=== PATIENT | male | born 1960 | race Caucasian/White ===

== ENCOUNTER → 2020-04-25 | Outpatient (CLI) | payer OTHER ==
[2020-04-25 10:06] LABS: ALT 59 U/L (4-49); AST 42 U/L (17-59); African American GFR (CKD) >90 (>60 ml/min/1.73 sqM); Albumin 4.5 g/dL (3.5-5.0); Albumin/Globulin Ratio 1.6; Alkaline Phosphatase 73 U/L (38-126); Anion Gap 9 mmol/L; Blood Urea Nitrogen 11 mg/dL (9-20); Calcium 9.5 mg/dL (8.4-10.2); Carbon Dioxide 23 mmol/L (22-30); Chloride 105 mmol/L (98-107); Cholesterol 262 mg/dL (<200); Globulin 2.8 g/dL; Glucose 124 mg/dL (74-99); HDL Cholesterol 51 mg/dL (40-60); LDL Cholesterol,Calculated 188 mg/dL (0-99); Non-African American GFR(CKD) >90 (>60 ml/min/1.73 sqM); Potassium 4.6 mmol/L (3.5-5.1); Sodium 137 mmol/L (137-145); Total Protein 7.3 g/dL (6.3-8.2); Triglycerides 117 mg/dL (<150)
== END | disposition home or self-care (01) ==
LOC: LABMAIN 08:55
PROVIDERS: ATTEND Family Medicine
DX: I10 Essential (primary) hypertension (principal)
CPT/HCPCS: 36415; 80053; 80061; 84443

== ENCOUNTER → 2020-07-22 | Outpatient (CLI) | payer OTHER ==
--- NOTE | 2020-07-22 11:54 | US ---
EXAMINATION TYPE: US abdomen complete DATE OF EXAM: 07/22/2020 COMPARISON: NONE CLINICAL HISTORY: R14.0 Abdominal Bloating. Sister had pancreatic CA, bloating, large body habitus EXAM MEASUREMENTS: Liver Length: 17.6 cm Gallbladder Wall: 0.2 cm CBD: 0.5 cm Spleen: 11.3 cm Right Kidney: 12.3 x 5.4 x 6.0 cm Left Kidney: 11.1 x 5.1 x 7.2 cm Pancreas: mostly obscured by bowel gas Liver: Mild diffuse fatty infiltration of the liver. No discrete hepatic mass or intrahepatic biliar y dilatation. Gallbladder: wnl Evidence for sonographic Tipton's sign: no CBD: wnl Spleen: wnl Right Kidney: wnl Left Kidney: wnl Upper IVC: wnl Abd Aorta: Limited visualization due to large body habitus and overlying bowel gas IMPRESSION: 1. The pancreas is mostly obscured by overlying bowel gas. The abdominal aorta is obscured by overlyi ng bowel gas and patient's large body habitus. 2. Mild diffuse fatty infiltration of the liver. 3. No cholelithiasis.
== END | disposition home or self-care (01) ==
LOC: RADUSWWP 07:30
PROVIDERS: ATTEND Family Medicine
DX: K76.0 Fatty (change of) liver, not elsewhere classified (principal); Z80.0 Family history of malignant neoplasm of digestive organs
CPT/HCPCS: 76700

== ENCOUNTER → 2020-09-18 | Day surgery (SDC) | payer OTHER ==
[2020-09-15 12:25] VITALS: BMI 33.0
[~2020-09-18] MED LIST: LACTATED RINGERS 1,000 ML IV SCH; LIDOCAINE 1% (10MG/ML) FOR IV START INTRADERMA PRN; PROPOFOL 10 MG/ML 20 ML VIAL IV ONE
[2020-09-18 12:51] VITALS: RESP 16; TEMP 97.3
--- NOTE | 2020-09-18 13:28 | P.PCN ---
Date of Procedure: 09/18/20 Procedure(s) Performed: BRIEF HISTORY: Patient is a 60-year-old pleasant white male scheduled for an elective colonoscopy as a part of screening for colorectal neoplasia. PROCEDURE PERFORMED: Colonoscopy with snare polypectomy. PREOPERATIVE DIAGNOSIS: Screening for colon cancer. IV sedation per Anesthesia. PROCEDURE: After informed consent was obtained, the patient, was brought into the endoscopy unit. IV sedation was administered by Anesthesia under continuous monitoring. Digital rectal examination was normal. Initially the Olympus CF-160 flexible video colonoscope was then inserted in the rectum, gradually advanced into the cecum without any difficulty. Careful examination was performed as the scope was gradually being withdrawn. Ileocecal valve and the appendiceal orifice were visualized and appeared normal. Prep was excellent. Mucosa of the cecum, ascending colon appeared normal. In the transverse colon there was a 7-8 mm sessile polyp removed by snare polypectomy. Rest of the, transverse colon, descending colon, sigmoid colon, and rectum appeared normal. Retroflexion was performed in the rectum and no lesions were seen. The patient tolerated the procedure well. IMPRESSION: 7-8 mm transverse colon polyp status post polypectomy Scattered sigmoid diverticula. RECOMMENDATIONS: Findings of this examination were discussed with the patient as well as his family. He was advised to follow with the biopsy results. If the biopsy shows an adenoma he can have a repeat colonoscopy in 5 years.
[2020-09-18 13:49] VITALS: BP 158/98; PULSE 62
== END ==
LOC: ORWHC2ENDO 12:24
PROVIDERS: ATTEND Internal Medicine Gastroenterology
DX: Z12.11 Encounter for screening for malignant neoplasm of colon (principal); D12.3 Benign neoplasm of transverse colon; I10 Essential (primary) hypertension; Z79.899 Other long term (current) drug therapy
CPT/HCPCS: 88305; 45385; J2704

== ENCOUNTER → 2021-08-12 | Outpatient (CLI) | payer OTHER ==
[2021-08-12 14:06] LABS: Basophils # (A) 0.04 X 10*3/uL (0.00-0.10); Basophils % (A) 0.5 %; Eosinophils # (A) 0.12 X 10*3/uL (0.04-0.35); Eosinophils % (A) 1.5 %; HCT 49.6 % (39.6-50.0); HGB 15.7 g/dL (13.0-17.0); Immature Grans, Automated 0.3 %; Lymphocytes # (A) 1.05 X 10*3/uL (0.90-5.00); Lymphocytes % (A) 13.2 %; MCH 28.4 pg (27.0-32.0); MCHC 31.7 g/dL (32.0-37.0); MCV 89.9 fL (80.0-97.0); Mean Platelet Volume 10.9 fL (9.5-12.2); Monocytes # (A) 0.86 X 10*3/uL (0.20-1.00); Monocytes % (A) 10.8 %; NRBC Per 100 WBC 0 /100 WBCS (0.0-0.0); Neutrophils # (A) 5.88 X 10*3/uL (1.80-7.70); Neutrophils % (A) 73.7 %; Platelet Count 280 X 10*3/uL (140-440); RBC 5.52 X 10*6/uL (4.40-5.60); RDW 13.7 % (11.5-14.5); WBC 7.97 X 10*3/uL (4.50-10.00)
[2021-08-12 14:37] LABS: ALT 73 U/L (10-49); AST 47 U/L (14-35); African American GFR (CKD) 106.5 (60.0-200.0); Albumin 4.5 g/dL (3.8-4.9); Alkaline Phosphatase 82 U/L (41-126); BUN/Creat Ratio 11.44 Ratio (12.00-20.00); Blood Urea Nitrogen 10.3 mg/dL (9.0-27.0); Calcium 9.5 mg/dL (8.7-10.3); Carbon Dioxide 23.9 mmol/L (20.0-27.5); Chloride 101 mmol/L (96-109); Chol/HDL Ratio 5.25 Ratio; Globulin 2.5 g/dL (1.6-3.3); Glucose 132 mg/dL (70-110); LDL Cholesterol,Calculated 213.1 mg/dL (0.0-131.0); Non-African American GFR(CKD) 91.9 (60.0-200.0); Potassium 4.5 mmol/L (3.5-5.5); Sodium 139 mmol/L (135-145)
== END | disposition home or self-care (01) ==
LOC: LABWHC1 08:21
PROVIDERS: ATTEND Family Medicine
DX: Z00.00 Encounter for general adult medical examination without abnormal findings (principal)
CPT/HCPCS: 36415; 80053; 80061; 84439; 84443; 85025

== ENCOUNTER → 2022-05-09 | Outpatient (CLI) | payer OTHER ==
--- NOTE | 2022-05-09 13:28 | MR ---
EXAMINATION TYPE: MR shoulder RT wo con DATE OF EXAM: 05/09/2022 COMPARISON: Outside right shoulder x-ray April 26, 2022 HISTORY: Rt shoulder pain after injury 3 years ago TECHNIQUE: Multiplanar, multisequence imaging of the right shoulder is performed without contrast. FINDINGS: Rotator Cuff: Distal supraspinatus and infraspinatus tendons are intact with some areas of increased signal. Rotator cuff muscle bulk is preserved. Acromioclavicular Joint: Mild to moderate narrowing and moderate capsular hypertrophy. Also underlyin g fat plane sagittal image 16 for reference on the supraspinatus muscle. Glenohumeral Joint: Small size joint effusion. No significant spurring. Narrowing is present. Labrum: Increased signal superior labrum consistent with degenerative tearing. Biceps Tendon: The long head of biceps is in normal location within bicipital groove. Bone marrow signal: Few tiny subchondral cysts involving the superolateral humeral head. Other: No additional significant abnormality is appreciated. IMPRESSION: Some tendinosis of the supraspinatus and infraspinatus tendons. No full-thickness tears a re seen. AC joint arthropathy with suggestion of underlying impingement. Correlate currently.
== END | disposition home or self-care (01) ==
LOC: RADMRIMAIN 11:03
PROVIDERS: ATTEND Orthopaedic Surgery
DX: M75.111 Incomplete rotator cuff tear or rupture of right shoulder, not specified as traumatic (principal); M19.011 Primary osteoarthritis, right shoulder; M67.813 Other specified disorders of tendon, right shoulder

== ENCOUNTER 2023-02-01 05:42 | Day surgery (SDC) | payer OTHER ==
[2023-01-27 11:51] VITALS: BMI 35.4
--- NOTE | 2023-01-31 19:50 | HP ---
HISTORY AND PHYSICAL DATE OF SURGERY: 02/01/2023. HISTORY OF PRESENT ILLNESS: Jose Cali is a 62-year-old gentleman seen with progressive right shoulder pain. We discussed options regarding treatment. He elected to proceed with right shoulder arthroscopy. Consent regarding procedure was obtained. Medical clearance was provided by Dr. Fajardo. PAST MEDICAL HISTORY: Hypertension. PAST SURGICAL HISTORY: Noncontributory. DAILY MEDICATIONS: 1. Metoprolol. 2. Motrin. 3. Tylenol. ALLERGIES: None. SOCIAL HISTORY: Denies tobacco use. PHYSICAL EVALUATION OF THE RIGHT SHOULDER: Flexion is 140 degrees, abduction is 100 degrees. External rotation is 40 degrees with pain and weakness. Tenderness along the anterolateral acromion and rotator cuff insertion site. Impingement is positive at 80 degrees. Cross-body adduction sign is positive. Drop-arm sign is positive. Distal neurovascular exam is intact. IMAGING STUDIES: Right shoulder radiographs revealed a type 2 acromion and moderate acromioclavicular joint osteoarthritis. MRI of right shoulder revealed impingement, acromioclavicular joint osteoarthritis, labral tear, and rotator cuff tendinitis. IMPRESSION: 1. Right shoulder impingement with labral tear. 2. Right shoulder acromioclavicular joint osteoarthritis. 3. Right shoulder rotator cuff tendinitis. 4. Hypertension. PLAN: Right shoulder arthroscopy with subacromial decompression, possible arthroscopic rotator cuff repair, Italo procedure, and debridement of labral tear. MMODL / IJN: [id number] /
[~2023-02-01 05:42] MED LIST changes: +DEXAMETHASONE SOD PHOSPHATE 4 MG/ML 1 ML VIAL IV ONE; +ONDANSETRON 4 MG/2 ML VIAL IVP ONE; -PROPOFOL 10 MG/ML 20 ML VIAL IV ONE
[2023-02-01 06:42] LABS: Glucose,Whole Blood 140 mg/dL (70-110)
[2023-02-01] MEDS ORDERED: MIDAZOLAM 2 MG/2 ML VIAL IVP ONE (06:47)
[2023-02-01] MEDS ORDERED: fentaNYL (PF) 50 MCG/ML 2 ML AMP IVP ONE (06:47)
[2023-02-01] MEDS ORDERED: MIDAZOLAM 2 MG/2 ML VIAL IV PRN (07:00)
[2023-02-01] MEDS ORDERED: PROPOFOL 10 MG/ML 20 ML VIAL IV ONE (07:23)
[2023-02-01] MEDS ORDERED: fentaNYL (PF) 50 MCG/ML 2 ML AMP ONE (07:23)
[2023-02-01] MEDS ORDERED: PHENYLEPHRINE-0.9% NACL SYG 1,000 MCG/10 ML SYRINGE ONE (07:23)
[2023-02-01] MEDS ORDERED: ROPIVACAINE 5 MG/ML 30 ML VIAL ONE (07:23)
[2023-02-01] MEDS ORDERED: NEOSTIGMINE 1 MG/ML 10 ML VIAL ONE (07:23)
[2023-02-01] MEDS ORDERED: SUCCINYLCHOLINE CHLORIDE 200 MG/10 ML VIAL IV ONE (07:23)
[2023-02-01] MEDS ORDERED: GLYCOPYRROLATE 0.2 MG/ML 2 ML VIAL ONE (07:23)
[2023-02-01] MEDS ORDERED: ROCURONIUM 10 MG/ML (5 ML VIAL) IV ONE (07:23)
--- NOTE | 2023-02-01 07:34 | HP ---
HISTORY AND PHYSICAL DICTATION ENDS HERE. MMODL / IJN: [id number] /
--- NOTE | 2023-02-01 09:04 | P.OP ---
Date of Procedure: 02/01/23 Preoperative Diagnosis: Right shoulder impingement Postoperative Diagnosis: 1. Right shoulder rotator cuff tear 2. Right shoulder partial long head biceps tendon tear/bicipital tendinitis 3. Right shoulder impingement 4. Right shoulder acromioclavicular joint osteoarthritis 5. Right shoulder superficial labral tear Procedure(s) Performed: 1. Right shoulder arthroscopic rotator cuff repair 2. Right shoulder arthroscopic biceps tenodesis 3. Right shoulder arthroscopic subacromial decompression 4. Right shoulder arthroscopic Italo procedure 5. Right shoulder arthroscopic debridement labral tear Implants: 2Arthrex 4.75 swivel lock anchors Anesthesia: GETA, regional (Interscalene block) Surgeon: Mathieu Nur Soaping Machine Back Tender #1: Godwin Muniz Estimated Blood Loss (ml): 10 Pathology: none sent Condition: stable Disposition: PACU Indications for Procedure: 62-year-old gentleman seen with progressive right shoulder pain. After treatment options were discussed, he elected to proceed with arthroscopy. Operative Findings: See description of procedure Description of Procedure: Patient underwent an interscalene block by department of anesthesia. The patie nt was then taken to the operative suite. The patient underwent a general anesthetic by the department of anesthesia. The patient was placed into a lateral position and secured. There was appropriate padding of the bony prominence. Right shoulder was then prepped and draped in normal sterile orthopedic fashion. We placed the extremity in 10 pounds of longitudinal traction. A posterior incision was now made for a posterior working portal site. The trocar and cannula were inserted into the glenohumeral joint. Arthroscopy was initiated. Spinal needle was now inserted anteriorly, to ascertain the anterior working portal site. An incision was now made in that area, a trocar was inserted followed by a probe. There was some superficial tearing of the superior labrum. There was hyperemia partial tearing long head biceps tendon. There were mild grade 1 chondromalacia changes involving the glenohumeral joint. The remaining labrum was stable. I decided to proceed with a arthroscopic bi ceps tenodesis. The cannula was introduced through the anterior portal site. I performed a looped and tacked stitch to the biceps tendon. I released the biceps from the superior labrum. With the assistance of Adrián FRANCISCO I punched the hole at the interval for insertion of an anchor. I now passed the stitch through the eyelet of a Arthrex 4.75 swivel lock anchor. I placed the eyelet into the pre-punch hole. I then in position while Adrián FRANCISCO tensioned the suture and deployed the anchor with good fixation noted. The residual suture limb was clipped. We had a stable appearing biceps tenodesis. I now introduced a motorized shaver and debrided out the superficial labral tear. The remaining labrum was probed and was found to be stable. Instruments were now removed from the glenohumeral joint. Utilizing the posterior working portal site, the trocar and cannula were inserted into the subacromial space. Arthroscopy initiated. I made an incision 2 fingerbreadths lateral to the acromion. I introduced my trocar followed by my ArthroCare ablator. I now began ablating thick subacromial bursal tissue, which exposed the undersurface of the anterior acromion. There was diminished subacromial space. There was a very prominent anterior acromion. A motorized bur was introduced and a subacromial decompression was performed. I also excised some osteophytes off the inferior aspect of the distal clavicle. The AC joint was visualized and noted to be fairly arthritic. The motorized bur was introduced in the anterior portal site and a Italo procedure was performed without difficulty, decompressing the AC joint nicely. I turned my attention to the rotator cuff. There was a 1 cm rotator cuff tear. I debrided the margins getting down to stable tendon tissue. I introduced my motorized bur and abraded the footprint area, getting some petechial bleeding. I passed 2 everted mattress sutures through good bites of rotator cuff tendon. I now punched a hole in the footprint area for insertion of an anchor. All 4 limbs of suture were passed through the eyelet of a Arthrex 4.75 swivel lock anchor. The eye was now placed into our pre-punch hole. I then positioned while Adrián FRANCISCO tension the suture limbs and deployed the anchor. There was good fixation of the anchor. All residual suture limbs were now clipped. We had good compression of the tendon along the entire footprint. Instruments now removed from the portal sites. All portal sites were approximated with nylon suture. Sterile dressings were applied followed by a shoulder sling. Godwin FRANCISCO assisted in all aspects case. The patient was awakened, transferred to a bed, and taken to recovery in stable condition.
[2023-02-01] MEDS: HYDROmorphone 0.5 MG/0.5 ML SYRINGE IVP PRN ×4 (09:07→09:55)
[2023-02-01 09:10] LABS: Glucose,Whole Blood 138 mg/dL (70-110)
[2023-02-01] MEDS ORDERED: LACTATED RINGERS 1,000 ML IV ONE (09:17)
[2023-02-01 09:21] VITALS: TEMP 97
--- NOTE | 2023-02-01 09:39 | P.ANPRN ---
Procedure Note - Anesthesia - Nerve Block Performed Right Interscalene Single Date of Procedure: 02/01/23 Procedure Start Time: 06:46 Procedure Stop Time: 07:00 Location of Patient: PreOp Indication: Acute Post-Operative Pain, Requested by Surgeon Sedation Type: Sedate with meaningful contact maintained Preparation: Sterile Prep Position: Supine Needle Types: Pajunk Needle Gauge: 21 Ultrasound used to visualize needle placement: Yes Ultrasound used to observe medication spread: Yes Injectate: 0.5% Ropivacaine (see comment for volume) (30) Blood Aspirated: No Pain Paresthesia on Injection Noted: No Resistance on Injection: Normal Image Stored and Saved: Yes Events: Uneventful and Well Tolerated
[2023-02-01] MEDS ORDERED: ONDANSETRON 4 MG/2 ML VIAL IVP ONE (09:54)
[2023-02-01 10:13] VITALS: RESP 16
[2023-02-01] MEDS ORDERED: HYDROcodone/APAP 7.5-325MG 1 EACH TAB ONE (10:26)
[2023-02-01] MEDS ORDERED: METOPROLOL TARTRATE 5 MG/5 ML VIAL IVP ONE (11:15)
[2023-02-01 11:31] VITALS: BP 160/82; PULSE 95
== END 2023-02-01 11:47 | disposition home or self-care (01) ==
LOC: OR 05:42
PROVIDERS: ATTEND Orthopaedic Surgery
DX: M75.41 Impingement syndrome of right shoulder (principal); M75.101 Unspecified rotator cuff tear or rupture of right shoulder, not specified as traumatic; M19.011 Primary osteoarthritis, right shoulder; G89.18 Other acute postprocedural pain; I10 Essential (primary) hypertension; Z79.899 Other long term (current) drug therapy
CPT/HCPCS: 64415; 29827; 29826; C1713 ×2; J2250; J0330; J1100; J2710; J0690; J2405; J3010; J2795; J2704; J1170; J2371

== ENCOUNTER → 2023-11-16 | Outpatient (CLI) | payer OTHER ==
[2023-11-16 11:09] LABS: African American GFR (CKD) >90 (>60 ml/min/1.73 sqM); Blood Urea Nitrogen 8 mg/dL (9-20); Non-African American GFR(CKD) >90 (>60 ml/min/1.73 sqM)
--- NOTE | 2023-11-16 12:11 | CT ---
EXAMINATION TYPE: CT abdomen w con DATE OF EXAM: 11/16/2023 COMPARISON: 05/12/2015 HISTORY: ELEVATED LIVER ENZYMES, PAIN, FREQUENT BOWEL MOVEMENTS CT DLP: 1055 mGycm Automated exposure control for dose reduction was used. TECHNIQUE: Helical acquisition of images was performed from the lung bases through the top of iliac crest to include entire abdomen. CONTRAST: Performed with Oral Contrast and with IV Contrast, patient injected with 100 mL of Isovue 300. FINDINGS: The visualized lung bases are clear. There are no gallstones but the gallbladder is markedly distended. There is no gallbladder wall thick ening or pericholecystic fluid. There is a 2 to 3 mm low density lesion in the right lobe of the live r too small to characterize a certainty but possibly represents a simple hepatic cyst. There is a large 5.0 x 4.0 cm mass in the pancreatic head resulting in marked dilatation of the commo n bile duct and the pancreatic duct. The mass is highly suspicious for pancreatic neoplasm and furthe r evaluation is warranted There are no adrenal masses. There is no splenomegaly. There is no solid renal mass or hydronephrosis. There is no retroperitoneal adenopathy or hemorrhage in the caliber of the abdominal aorta is normal. The bowel loops are normal in caliber and is no dilatation or obstruction. There is no free intraperi toneal air or fluid. No inflammatory changes are identified in the mesentery. IMPRESSION: 1. Large 5.0 x 4.0 cm mass in the pancreatic head highly suspicious for neoplasm. It results in extra hepatic biliary ductal dilatation, distention of the gallbladder and marked pancreatic duct dilatatio n. 2. Probable small cyst in the right lobe of the liver but the lesion is too small to characterize wit h certainty. [facility], , 11/16/2023 12:08 PM
== END | disposition home or self-care (01) ==
LOC: RADCTMAIN 10:30
PROVIDERS: ATTEND Family Medicine
DX: R74.01 Elevation of levels of liver transaminase levels
CPT/HCPCS: 36415; 74160; 82565; 84520

== ENCOUNTER → 2023-11-20 | Outpatient (CLI) | payer OTHER ==
--- NOTE | 2023-11-20 08:34 | US ---
EXAMINATION TYPE: US renal artery duplex complet DATE OF EXAM: 11/20/2023 COMPARISON: NONE CLINICAL INDICATION: Male, 63 years old with history of I10 ESSENTIAL HTN; HTN MEASUREMENTS: RENAL SIZE: Right Kidney: 12.3 x 7.8 x 4.4 cm Left Kidney: 13.1 x 5.6 x 5.0 cm Right Kidney: No hydronephrosis or lesions seen Left Kidney: No hydronephrosis or lesions seen Abd Aorta: wnl RESISTANCE INDEX Right: 0.72 Left: 0.77 RA/AO RATIO (< 3.5 ) Right: 1.5 Left: 1.5 RENAL ARTERY VELOCITY ( < 180 cm/s) Right: 138.7 Left: 143.1 IMPRESSION: 1. No evidence for renal artery stenosis. 2. No evidence for acute process. [facility], , 11/20/2023 8:32 AM
== END | disposition home or self-care (01) ==
LOC: RADUSWWP 07:10
PROVIDERS: ATTEND Family Medicine
DX: I10 Essential (primary) hypertension (principal)
CPT/HCPCS: 93975

== ENCOUNTER → 2023-12-21 | Outpatient (CLI) | payer OTHER ==
[2023-12-21 15:38] LABS: Basophils # (A) 0.06 X 10*3/uL (0.00-0.10); Basophils % (A) 0.5 %; Eosinophils # (A) 0.17 X 10*3/uL (0.04-0.35); Eosinophils % (A) 1.5 %; HCT 44.9 % (39.6-50.0); HGB 14.6 g/dL (13.0-17.0); Lymphocytes # (A) 0.48 X 10*3/uL (0.90-5.00); Lymphocytes % (A) 4.3 %; MCH 30.2 pg (27.0-32.0); MCHC 32.5 g/dL (32.0-37.0); Mean Platelet Volume 12.3 FL (9.5-12.2); Monocytes # (A) 0.62 X 10*3/uL (0.20-1.00); Monocytes % (A) 5.6 %; NRBC Per 100 WBC 0 X 10*3/uL (0.00-0.01); Neutrophils # (A) 9.79 X 10*3/uL (1.80-7.70); Neutrophils % (A) 87.7 %; Platelet Count 344 X 10*3/uL (140-440); RBC 4.83 X 10*6/uL (4.40-5.60); RDW 14.9 % (11.5-14.5); WBC 11.17 X 10*3/uL (4.50-10.00)
[2023-12-21 15:57] LABS: ALT 499 U/L (10-49); AST 303 U/L (14-35); Albumin/Globulin Ratio 1.48 Ratio (1.60-3.17); Alkaline Phosphatase 978 U/L (41-126); BUN/Creat Ratio 24.43 Ratio (12.00-20.00); Blood Urea Nitrogen 17.1 mg/dL (9.0-27.0); Calcium 9.6 mg/dL (8.7-10.3); Carbon Dioxide 16.6 mmol/L (21.6-31.8); Chloride 100 mmol/L (96-109); Globulin 2.7 g/dL (1.6-3.3); Glucose 152 mg/dL (70-110); Potassium 4.3 mmol/L (3.5-5.5); Sodium 138 mmol/L (135-145); Total Bilirubin 0.9 mg/dL (0.3-1.2); Total Protein 6.7 g/dL (6.2-8.2)
[2023-12-21 16:03] LABS: Carcinoembryonic Antigen 4.4 ng/mL (0.0-4.9)
[2023-12-21 22:02] LABS: Prealbumin 13.9 mg/dL (18.0-42.0)
== END | disposition home or self-care (01) ==
LOC: LABWHC1 10:01
PROVIDERS: ATTEND Surgery
DX: C25.0 Malignant neoplasm of head of pancreas (principal)
CPT/HCPCS: 36415; 80053; 82378; 83036; 84134; 85025; 86301